=== PATIENT | male | born 1990 ===

== ENCOUNTER 2017-04-26 21:41 | Emergency (ER) | payer OTHER ==
[2017-04-26 21:49] VITALS: BP 136/85; PULSE 90; RESP 16; TEMP 98.1; O2SAT 99
[2017-04-26] MEDS ORDERED: Sodium Chloride 0.9% 1,000 ML IV STA (22:16)
[2017-04-26 23:06] LABS: HEMATOCRIT 39.9 % (35.0-51.0); MEAN CORPUSCULAR HEMOGLOBIN 30.3 pg (27.0-31.0); MEAN CORPUSCULAR HGB CONC 33.4 g/dL (33.0-37.0); RED CELL DISTRIBUTION WIDTH 13.1 % (11.5-14.5)
[2017-04-26 23:15] LABS: ALB/GLOB RATIO 1.5 (1.0-2.1); ALKALINE PHOSPHATASE 48 U/L (38-126); ALT/SGPT 40 U/L (21-72); AST/SGOT 31 U/L (17-59); BILIRUBIN,TOTAL 0.8 mg/dl (0.2-1.3); BLOOD UREA NITROGEN 26 mg/dl (9-20); CALCIUM 9.7 mg/dL (8.4-10.2); CARBON DIOXIDE 30 mmol/L (22-30); CHLORIDE 101 mmol/L (98-107); GFR AFRICAN-AMERICAN > 60; GLUCOSE,RANDOM 77 mg/dL (75-110); POTASSIUM 4.3 MMOL/L (3.6-5.0); SODIUM 140 mmol/l (132-148); TOTAL PROTEIN 7.3 G/DL (6.3-8.2)
[2017-04-26] MEDS ORDERED: Iohexol 300 100 ML IJ ONE (23:54)
[2017-04-26] MEDS ORDERED: Sodium Chloride 0.9% 50 ML IV ONE (23:55)
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
--- NOTE | 2017-04-27 00:59 | CT ---
EXAM: CT Abdomen and Pelvis With Intravenous Contrast EXAM DATE/TIME: 04/26/2017 10:29 PM CLINICAL HISTORY: 27 years old, male; Pain; Abdominal pain; Generalized; Additional info: Left sided pain, ecchymosis, trauma TECHNIQUE: Axial computed tomography images of the abdomen and pelvis with intravenous contrast. All CT scans at this facility use one or more dose reduction techniques, viz.: automated exposure control; ma/kV adjustment per patient size (including targeted exams where dose is matched to indication; i.e. head); or iterative reconstruction technique. Coronal and sagittal reformatted images were created and reviewed. CONTRAST: 95 mL of [id number] administered intravenously. COMPARISON: There are no prior studies for comparison. FINDINGS: Lower thorax: Heart size is normal. Lung bases are clear.There is no pneumothorax. There are no pleural effusions. ABDOMEN: Liver: There is fatty infiltration of the liver. Gallbladder and bile ducts: unremarkable Pancreas: unremarkable Spleen: unremarkable Adrenals: unremarkable Kidneys and ureters: There are tiny nonobstructing renal stones.Kidneys and ureters are otherwise unremarkable. Stomach and bowel: Stomach is incompletely distended. Rotation is normal. Small bowel is mildly distended with fluid and air. There is no obstruction. There is fecalization of the distal and terminal ileum. is not visualized. There is no pericecal inflammation. There is moderate stool throughout the colon. Appendix: See stomach and bowel PELVIS: Bladder: unremarkable Reproductive: Seminal vesicles and prostate are unremarkable. ABDOMEN and PELVIS: Intraperitoneal space: There is no free air or free fluid. Bones/joints: Posterior abdominal wall, right flank and hip bruising and edema. There is minimal inflammation/bruising in the right posterior pararenal. There are no acute displaced rib fractures.There are degenerative changes in the osseus structures. 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 Soft tissues: See above. Vasculature: Vascular structures are unremarkable. There are phleboliths. Lymph nodes: There is no pathologic adenopathy. IMPRESSION: Bruising and edema in the right lateral abdominal wall, right flank and hip with minimal bruising in the right posterior pararenal space, no acute solid visceral or bowel injury, no fracture seen; probable constipation Additional findings as described above.
== END 2017-04-27 01:23 | disposition home or self-care (01) ==
LOC: H.ER 21:41
DX: S30.1XXA Contusion of abdominal wall, initial encounter (principal); W22.01XA Walked into wall, initial encounter; Y93.9 Activity, unspecified
CPT/HCPCS: 74177; 80053; 85027; J7040; Q9967